=== PATIENT | female | born 1980 | race Two or more races ===

== ENCOUNTER 2020-01-21 16:29 | Emergency (ER) | payer SELFPAY ==
--- NOTE | 2020-01-21 16:37 | EDM.PDOC ---
ED HPI GENERAL MEDICAL PROBLEM - General Chief Complaint: Head Injury Stated Complaint: HEAD INJURY Time Seen by Provider: 01/21/20 16:37 - History of Present Illness INITIAL COMMENTS - FREE TEXT/NARRATIVE: 39-year-old female presents the emergency room with a head injury. Shortly before arrival the patient got out of the car on the slippery ice and slipped fell backwards hitting the back of her head. She saw black and red did not see stars and was just dazed for about 15 minutes. But really did not have loss of consciousness at this point she has a headache that she rates at a 6 or 7. No nausea or vomiting or other neurologic dysfunction noted at this time. Headache Pain Score (Numeric/FACES): 6 - Related Data Allergies Allergy/AdvReac Type Severity Reaction Status Date / Time No Known Allergies Allergy Verified 01/21/20 16:40 Home Meds: Home Meds . [No Known Home Meds] 01/21/20 [History] ED ROS GENERAL - Review of Systems Review Of Systems: See Below Constitutional: Reports: No Symptoms HEENT: Reports: No Symptoms Respiratory: Reports: No Symptoms Cardiovascular: Reports: No Symptoms GI/Abdominal: Reports: No Symptoms Musculoskeletal: Reports: Neck Pain Neurological: Reports: Headache. Denies: Confusion, Dizziness, Numbness, Seizure, Syncope, Tingling ED EXAM, HEAD INJURY - Physical Exam Exam: See Below Exam Limited By: Language Barrier (With family translating and having a hard time getting some questions answered or getting vague responses) General Appearance: No Apparent Distress, Other (She is perhaps a little slower than I would expect) Head: Other (Has a contusion on the left occiput) Nexus Criteria: No: Posterior, Midline Cervical Tenderness, Evidence of Intoxication, Altered Level of Consciousness, Focal Neurological Deficit, Painful Distraction Injuries Eyes: Bilateral Eye: EOMI, Normal Inspection, PERRL Ears: Normal External Exam, Normal Canal, Hearing Grossly Normal, Normal TMs Nose: Normal Inspection, Normal Mucousa, No Blood Throat/Mouth: Normal Inspection, Normal Lips, Normal Teeth, Normal Gums, Normal Oropharynx, Normal Voice, No Airway Compromise Neck: Tenderness, Other (Has some soft tissue tenderness that goes from behind her jaw towards the base of her skull but stops before the base of her skull this is noted on both sides she has no bony tenderness in the neck.). No: Paraspinous Muscle Tender, Spinous Processes Tender Respiratory: No Respiratory Distress, Lungs Clear, Normal Breath Sounds Cardiovascular: Regular Rate, Rhythm, No Edema, No Murmur Course - Vital Signs Last Recorded V/S: Last Vital Signs Temp 36.7 C 01/21/20 16:36 Pulse 96 01/21/20 16:36 Resp 19 01/21/20 16:36 BP 170/91 H 01/21/20 16:36 Pulse Ox 100 01/21/20 16:36 - Re-Assessments/Exams Free Text/Narrative Re-Assessment/Exam: 01/21/20 17:13 We will go ahead and check a head CT with her headaches and the language barrier. 01/21/20 18:10 CT is unremarkable. Will discharge home at this time Departure - Departure Time of Disposition: 18:10 Disposition: Home, Self-Care 01 Clinical Impression: Head injury - Discharge Information Instructions: Head Injury, Adult, [id number] Referrals: PCP,None [Primary Care Provider] - Forms: ED Department Discharge Additional Instructions: Return to the emergency room with any questions problems or worsening symptoms. Tylenol, or acetaminophen as needed for discomfort and headaches. Get plenty of sleep avoid excessive screen time such as TV or computer, cell phone usage. Follow-up in the hospital clinic early next week for recheck [phone] Sepsis Event Note - Focused Exam Vital Signs: Vital Signs Temp Pulse Resp BP Pulse Ox 01/21/20 16:36 36.7 C 96 19 170/91 H 100 Date Exam was Performed: 01/21/20 Time Exam was Performed: 18:10
--- NOTE | 2020-01-21 17:58 | CT ---
Head CT Technique: Multiple axial sections through the brain were obtained. Intravenous contrast was not utilized. Comparison: No prior intracranial imaging is available. Findings: Ventricles along with basal cisterns and sulci over the convexities are within normal limits. No abnormal parenchymal densities are seen. No evidence of intracranial hemorrhage. No midline shift or mass effect is seen. No acute calvarial abnormality is seen on bone window settings. Impression: 1. Nothing acute is appreciated on noncontrast head CT exam. Diagnostic code #1
== END 2020-01-21 18:17 | disposition home or self-care (01) ==
LOC: JD.ED 16:29
DX: S00.03XA Contusion of scalp, initial encounter (principal); W00.0XXA Fall on same level due to ice and snow, initial encounter
CPT/HCPCS: 70450; 70450-26; 99282; 99283-25